=== PATIENT | male | born 1990 | race African-American/Black ===

== ENCOUNTER 2020-09-25 20:44 | Emergency (ER) | payer BC ==
[~2020-09-25] VITALS: Ht 190.5 cm; Wt 145.2 kg
[~2020-09-25 20:44] MED LIST: PREDNISONE 20 M20 MG PO
[2020-09-25] MEDS ORDERED: BUSPIRONE HCL10 MG PO (20:57)
[2020-09-25] MEDS ORDERED: CLONAZEPAM 0.50.5 M1 PO (20:58)
[2020-09-25 21:30] LABS: ABSOLUTE NEUTROPHILS 4.2 thou/uL (1.4-8.2); BASOPHILS 1.2 % (0.0-2.0); EOSINOPHILS 4.1 % (0.0-3.0); HEMATOCRIT 49.1 % (42.0-52.0); HEMOGLOBIN 17.4 gm/dL (14.0-18.0); LYMPHOCYTES 42.8 % (24.0-44.0); MCH 32.1 pg (26.0-34.0); MCHC 35.5 g/dL (28.0-37.0); MCV 90.5 fL (80.0-100.0); MONOCYTES 5.6 % (1.0-8.0); PLATELET COUNT 246 thou/uL (150-400); POLYS 46.3 % (36.0-66.0); RBC 5.43 mil/uL (4.50-6.00); RDW 13.7 % (10.5-14.5)
[2020-09-25 21:55] LABS: ANION GAP 10 mmol/L (7-16); BUN 7 mg/dL (7-18); CALCIUM 9.5 mg/dL (8.5-10.1); CHLORIDE 102 mmol/L (98-107); CO2 29 mmol/L (21-32); CREATININE 1.1 mg/dL (0.7-1.3); GLUCOSE 85 mg/dL (74-106); POTASSIUM 3.7 mmol/L (3.5-5.1); SODIUM 141 mmol/L (136-145)
[2020-09-25 22:05] LABS: ALBUMIN 4.1 g/dL (3.4-5.0); SGOT 30 U/L (15-37); SGPT 49 U/L (16-63); TOTAL BILIRUBIN 0.4 mg/dL (0.2-1.0); TOTAL PROTEIN 8.3 g/dL (6.4-8.2); TROPONIN-I <0.06 ng/mL (<0.06)
[2020-09-25] MEDS ORDERED: ATIVAN1 M1 PO (22:28)
[2020-09-25 22:45] VITALS: BP 153/69
--- NOTE | 2020-09-26 05:52 | EKG ---
[address] [address] ELECTROCARDIOGRAM REPORT Name: STEPHY,BETHANY J Room #: 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: [facility] : 1990 Requested By: More Damon Order Number: [id number] MD: Dawson Mcintyre Measurements Intervals [place] Rate: 110 P: 48 OR: 144 QRS: 49 QRSD: 88 T: -31 QT: 322 QTc: 436 Interpretive Statements Sinus tachycardia Borderline T abnormalities, inferior leads No previous ECG available for comparison Electronically Signed On 09-26-2020 5:52:00 CDT by Dawson Mcintyre [email or web address] <ELECTRONICALLY SIGNED> By: Dawson Mcintyre MD, [facility] 09/26/20 [id number] Dawson Mcintyre MD, FACC /EPI
== END 2020-09-25 22:45 | disposition home or self-care (01) ==
LOC: ER 20:44
PROVIDERS: Physician Assistant
DX: R07.89 Other chest pain (principal); F41.9 Anxiety disorder, unspecified; F17.210 Nicotine dependence, cigarettes, uncomplicated